=== PATIENT | female | born 1980 | race Caucasian/White ===

== ENCOUNTER 2019-04-24 22:09 | Emergency (ER) | payer OTHER ==
[2019-04-24 22:18] VITALS: BP 95/61; PULSE 89; RESP 18; TEMP 98.5
--- NOTE | 2019-04-24 23:07 | ED ---
Upper Extremity HPI - General Chief Complaint: Extremity Injury, Upper Stated Complaint: R Shoulder/Elbow Pain Time Seen by Provider: 04/24/19 22:24 Source: patient Mode of arrival: ambulatory Limitations: no limitations - History of Present Illness Initial Comments: This patient is a 38-year-old woman who presents with going on 1 week of right back/shoulder pain. She indicates the area of the right rhomboid muscles. The patient states that the pain is burning. He pain gets worse if she attempts to abduct her arm or raise much above shoulder level. There is also tightness when she turns her head towards the left. Patient does have some relief with taking ibuprofen and she was given [place] by an associate which helped a little bit. MD Complaint: Injury to:: right, shoulder -: week(s) Other Extremity Injury: Shoulder: Right Other Injuries: none Handedness: right Place: home Improves With: medication, rest Worsens With: movement of extremity Associated Symptoms: denies other symptoms Treatments Prior to Arrival: NSAIDS - Related Data Home Medications Medication Instructions Recorded Confirmed Ibuprofen [Motrin Ib] 400 mg PO Q46H PRN 04/24/19 04/24/19 Previous Rx's Medication Instructions Recorded Ibuprofen 400 mg PO Q8H #20 tablet 04/24/19 Methocarbamol [Robaxin-750] 750 mg PO TID PRN #30 tablet 04/24/19 Allergies Allergy/AdvReac Type Severity Reaction Status Date / Time No Known Allergies Allergy Verified 04/24/19 22:29 Review of Systems ROS Statement: Those systems with pertinent positive or pertinent negative responses have been documented in the HPI. ROS Other: All systems not noted in ROS Statement are negative. Constitutional: Denies: fever, weakness Respiratory: Denies: cough, dyspnea Cardiovascular: Denies: chest pain, palpitations Gastrointestinal: Denies: abdominal pain Musculoskeletal: Reports: as per HPI, myalgia. Denies: back pain, joint swelling, arthralgia Skin: Denies: rash Neurological: Denies: weakness, numbness, paresthesias Past Medical History Past Medical History: No Reported History Additional Past Medical History / Comment(s): ABDOMINAL PAIN History of Any Multi-Drug Resistant Organisms: None Reported Past Surgical History: Section, Tubal Ligation Past Psychological History: No Psychological Hx Reported Smoking Status: Current every day smoker Past Alcohol Use History: Occasional Past Drug Use History: Marijuana General Exam Limitations: no limitations General appearance: alert, in no apparent distress Head exam: Present: atraumatic, normocephalic Neck exam: Present: normal inspection, full ROM. Absent: tenderness, meningismus Extremities exam: Present: normal inspection, tenderness (Patient has tenderness and increased muscle tone to the right rhomboid and the base of the right trapezius muscle.), normal capillary refill, other (Shoulder exam throughout the right shoulder is normal.) Back exam: Present: normal inspection, full ROM, muscle spasm, paraspinal tenderness (Right paraspinal muscles). Absent: vertebral tenderness Skin exam: Present: warm, dry, intact, normal color. Absent: rash Course Vital Signs 04/24/19 22:14 Temperature 98.5 F Pulse Rate 89 Respiratory 18 Rate Blood Pressure 95/61 O2 Sat by Pulse 98 Oximetry Disposition Clinical Impression: Muscle strain Disposition: HOME SELF-CARE Condition: Good Instructions (If sedation given, give patient instructions): Muscle Strain (ED) Prescriptions: Ibuprofen 400 mg PO Q8H #20 tablet Methocarbamol [Robaxin-750] 750 mg PO TID PRN #30 tablet PRN Reason: pain Is patient prescribed a controlled substance at d/c from ED?: No Referrals: None,Stated [REFERRING] - 1-2 days Cezar Carranza MD [STAFF PHYSICIAN] - 1-2 days
== END 2019-04-24 23:15 | disposition home or self-care (01) ==
LOC: EC 22:09
DX: S46.911A Strain of unspecified muscle, fascia and tendon at shoulder and upper arm level, right arm, initial encounter (principal); M62.830 Muscle spasm of back; F17.200 Nicotine dependence, unspecified, uncomplicated; X58.XXXA Exposure to other specified factors, initial encounter
CPT/HCPCS: 99283